=== PATIENT | male | born 1965 | race Caucasian/White ===

== ENCOUNTER 2020-09-30 07:32 | Outpatient (CLI) | payer BC, SELFPAY ==
[2020-09-30 09:01] VITALS: BP 119/80; PULSE 80; RESP 16; TEMP 37.1; O2SAT 91
--- NOTE | 2020-09-30 09:07 | ED_ITS ---
HPI - General Adult History of Present Illness: HPI narrative: This patient presents to the emerg ency department for monoclonal antibody infusion related to COVID-19 infection. Patient denies any increased shortness of breath. Or any significant fever. Patient and I discussed all risk and concerns. Patient states understanding he request request to proceed. Patient is medically medically stable and will proceed with monoclonal infusion. Associated symptoms: Deny chest pain, dyspnea, headache(s), nausea, rash, palpitations or vomiting Review of Systems General: Reports: 10 or more systems reviewed and unremarkable except in HPI and below Const: Denies: fever(s), chills, body aches or fatigue Eyes: Denies: change in vision or blurry vision ENMT: Denies: throat pain, hoarseness or mouth pain Card: Denies: chest pain, palpitations, irregular heart rhythm, edema, swelling of feet/ankles or lightheadedness Resp: Reports: non-productive cough; Denies: dyspnea, productive cough, wheezing or pain on inspiration GI: Denies: abdominal pain, nausea or vomiting : Denies: flank pain, dysuria, urinary frequency, urinary urgency or urinary hesitancy Musc: Denies: neck pain, back pain, extremity pain, extremity swelling, joint pain, joint swelling, joint redness, joint warmth or limited range of motion Skin/Breast: Denies: rash, pruritus, erythema or skin tenderness Neuro: Denies: headache(s), numbness in extremities or weakness in extremities Psych: Denies: anxiety or depression Physical Exam Const: COMMON NORMALS: no acute distress, average body habitus, patient oriented x3, no limitations, healthy appearing, alert and well nourished HENMT: COMMON NORMALS: normocephalic, atraumatic, hearing grossly normal bilaterally, external ears normal, EAC's normal, TM's normal bilaterally, Normal external nose present, Normal nasal mucous membranes and turbinates present, moist oral mucous membranes, oropharynx normal, dentition normal and gingiva normal HEAD & SCALP: normocephalic and atraumatic NOSE: Normal external nose present and Normal nasal mucous membranes and turbinates present EXTERNAL EAR: Yes external ears normal EXTERNAL AUDITORY CANAL: EAC's normal TYMPANIC MEMBRANE: TM's normal bilaterally Neck/C-Spine: COMMON NORMALS: full ROM, no lymphadenopathy, supple, no meningeal signs, no JVD, Thyroid normal and No carotid bruits THYROID: Thyroid normal Chest: COMMONS NORMALS: normal inspection of the chest, normal palpation of entire chest wall, normal inspection of the breasts and normal palpation of the breasts Breast/axilla inspection: Yes normal inspection of the breasts BREAST/AXILLA PALPATION: Yes normal palpation of the breasts Resp: COMMON NORMALS: normal respiratory effort, No retractions, No use of accessory muscles, clear to auscultation bilaterally and percussion normal AUSCULTATION: clear to auscultation bilaterally PERCUSSION: percussion normal Cardio: COMMON NORMALS: no JVD, regular rate, regular rhythm, S1 normal heart sound present, S2 normal heart sound present, No gallops present (Cardio), No clicks present (Cardio), No murmurs present (Cardio), No rub (Cardio) and Peripheral pulses 2+ throughout RATE: regular rate RHYTHM: regular rhythm HEART SOUNDS: S1 normal heart sound present and S2 normal heart sound present PERIPHERAL PULSES: Peripheral pulses 2+ throughout GI: COMMON NORMALS: Normal to inspection, nondistended, normoactive bowel sounds present, Soft to palpation, non-tender, No hepatosplenomegaly present, no masses and no bruits PALPATION: Yes Soft to palpation and Yes No hepatosple nomegaly present : COMMON NORMALS: Yes no CVA tenderness BLADDER/KIDNEY EXAM: Yes no CVA tenderness Back/Pelvis: COMMON NORMALS: no CVA tenderness, thoracic and lumbar spine normal to inspection, no thoracic nor lumbar tenderness, thoraco-lumbar ROM normal and straight leg raise negative bilaterally Extremity: COMMON NORMALS: normal to inspection, full ROM, capillary refill normal, no joint enlargement, no clubbing, cyanosis or edema, no calf tenderness and no pedal edema Neuro: COMMON NORMALS: patient oriented x3 SENSORIUM/ORIENTATION: Yes alert MENINGEAL SIGNS: Yes no meningeal signs Discharge Plan Discharge Patient Disposition: Home Discharge Orders: Discharge Order (Routine); Ordered 09/30/20 Ordered By: Donny Holden Referrals: Dustin Castellano MD [Primary Care Provider] - Coding Level of Care Code ED Medical Collector for Claudette Quezada
[2020-09-30 10:48] VITALS: BP 121/82; PULSE 91; TEMP 36.9; O2SAT 93
[2020-09-30 12:00] VITALS: BP 115/79; PULSE 88; TEMP 37; O2SAT 92
--- NOTE | 2020-10-08 15:35 | DCPLANNER ---
internet technology manager had message that patient received the monoclonal antibody infusion. internet technology manager called [phone], unable to speak with patient at this time, a voicemail was left for patient to return ed case manager phone call.
== END 2020-09-30 07:33 | disposition home or self-care (01) ==
PROVIDERS: PCP Family Medicine; Visit Provider Family Medicine
DX: U07.1 COVID-19 (principal)

== ENCOUNTER → 2023-03-08 07:54 | Outpatient (BNVA) | payer BC, SELFPAY | PROVIDERS: PCP Family Medicine; Visit Provider Family Medicine | DX: R73.03 Prediabetes (principal); Z13.220 Encounter for screening for lipoid disorders; Z51.81 Encounter for therapeutic drug level monitoring; Z79.899 Other long term (current) drug therapy | CPT/HCPCS: 80053; 80061; 83036; 85025 ==

== ENCOUNTER 2023-04-01 08:01 | Day surgery (SDC) | payer BC, SELFPAY ==
[2023-04-01 08:26] VITALS: BP 123/84; PULSE 108; RESP 18; TEMP 36.6; O2SAT 96; BMI 36.5
[2023-04-01] MEDS: sodium chloride 0.9% 1,000 ML 30 ML IV (08:37)
--- NOTE | 2023-04-01 09:50 | ANES.PREANE2 ---
Pre-Anesthetic Assessment Height/Weight: Height 1.73 m Weight 108.862 kg Temp Pulse Resp BP Pulse Ox O2 Del Method 97.8 F 108 H 18 123/84 96 Room Air 04/01/23 08:26 04/01/23 08:26 04/01/23 08:26 04/01/23 08:26 04/01/23 08:26 04/01/23 08:26 Preop Diagnosis: screening colonoscopy Operation Date: 04/01/23 09:00 Proposed Procedures p 20269 colonoscopy G0121 screen colon a risk Z12.11(Not Applicable) - Primo Jose DO Familial anesthetic complications: NONE Was Beta Socorro taken within 24 hours: N/A Was Clonidine taken within 24 hours: N/A Last intake: Intake Last Liquid Date 03/31/23 Last Liquid Time 20:00 Last Solid Date 03/30/23 Last Solid Time 18:00 Social Tobacco and No alcohol 1 pack(s) per day 10 pack years quit 20 years Exam alert, oriented x 3, clear to auscultation bilaterally and regular rate & rhythm states nausea and vomiting after shoulder surgery Airway Submandibular: within normal limits Cervical ROM: within normal limits Mallampati: Class I Dentition: full History/ROS No significant history except as noted Pulmonary None reported CV/HEM None reported None reported Hepatic None reported GI None reported Metabolic None reported Musc/skel Lower Back Pain Neuropsych None reported Anesthetic Plan ASA status: 2 Anesthesia: MAC Risk of > 500 ml blood loss (7ml/kg in children): No Medications/Allergies Home Medications Medication Instructions Recorded Confirmed Last Taken Type allopurinol 100 mg tablet 100 mg PO DAILY #90 tabs 01/19/23 04/01/23 03/30/23 Rx triamcinolone acetonide 0.5 % 1 applic topical DAILY PRN Rash 03/30/23 04/01/23 03/30/23 History topical cream Allergies Allergy/AdvReac Type Severity Reaction Status Date / Time penicillin V Allergy Unknown Unknown Verified 04/01/23 08:25 Current Medications Generic Name Dose Route Start Last Admin Trade Name Freq PRN Reason Stop Dose Admin Sodium Chloride 1,000 mls @ 30 mls/hr 04/01/23 08:15 04/01/23 08:37 Sodium Chloride 0.9% IV 04/02/23 08:14 30 mls/hr .Q24H LING Administration PFSH Anesthesia Family History Mother Cervical cancer Father Heart attack Data Anesthesia Cardiac Studies: No Data to Display
--- NOTE | 2023-04-01 10:05 | W.PM.OPSUD ---
Surgery/Procedure H&P Update DATE OF PROCEDURE: April 01, 2023 DATE H&P PERFORMED: 03/08/23 H&P UPDATE INFORMATION: I have reviewed H&P completed within last 30 days, I have examined patient prior to procedure and No changes to prior documentation PREOP DIAGNOSIS: screening colonoscopy PLANNED PROCEDURE: Operation Date: 04/01/23 09:00 Proposed Procedures p 76393 colonoscopy G0121 screen colon a risk Z12.11(Not Applicable) - Primo Jose, DO
[2023-04-01 10:37] VITALS: BP 108/88; PULSE 87; RESP 16; TEMP 36.1; O2SAT 94
[2023-04-01 10:55] VITALS: BP 134/92; PULSE 84; RESP 16; O2SAT 96
--- NOTE | 2023-04-01 13:10 | ANE.PACU2 ---
Inpatient post-anesthesia follow up: Airway intact: Yes Vital signs: Temperature 97 F Pulse Rate 84 Respiratory Rate 16 Blood Pressure 134/92 Pulse Oximetry 96 Oxygen Delivery Me thod Room Air Oxygen Flow Rate Fraction of Inspir ed Oxygen Hydration adequate: Yes Nausea and vomiting: No Pain level: 2 Mental status: Baseline
== END 2023-04-01 11:16 | disposition home or self-care (01) ==
PROVIDERS: PCP Family Medicine; Visit Provider Surgery
PROC: 0DJD8ZZ Inspection of Lower Intestinal Tract, Via Natural or Artificial Opening Endoscopic (ICD-10-PCS; CPT 45378; principal; 2023-04-01 09:00)
DX: Z12.11 Encounter for screening for malignant neoplasm of colon (principal); K64.8 Other hemorrhoids; D12.0 Benign neoplasm of cecum; D12.4 Benign neoplasm of descending colon; D12.5 Benign neoplasm of sigmoid colon; Z87.891 Personal history of nicotine dependence; Z79.82 Long term (current) use of aspirin
CPT/HCPCS: 45385; 88305; J2704; J7030

== ENCOUNTER 2023-11-23 09:29 | Outpatient (CLI) | payer OTHER, SELFPAY ==
[2023-11-23 09:40] VITALS: BMI 38.0
--- NOTE | 2023-11-23 09:43 | ECG_ITS ---
[facility] Test Date: 2023-11-23 Pat Name: Kenton Glasgow Department: Room: Gender: Male Can Sorter: : 1965 Requested By: Dustin Peralta Order Number: [id number] Casillas MD: Arun Thakur M.D. Interpretive Statements NAME OF STUDY: EXERCISE SESTAMIBI STRESS TEST INDICATION: [Chest Pain; Shoulder pain with exertion] EXERCISE DATA: The patient was exercised by Pierre protocol. Baseline heart rate was 88 beats per minute. Baseline blood pressure was 151/103 millimeters of mercury. Maximal predicted heart rate was 162 beats per minute. Maximum heart rate achieved was 159 which was 98% of the maximum predicted heart rate. Maximum blood pressure jal469/84 millimeters of mercury. Total exercise time was 6 minutes and 16 seconds. Maximum METs achieved was 10.2. The reason for ending the test was completion of protocol. The patient complained of shoulder discomfort and chest pain during the stress test, which then resolved at the end of the test. ELECTROCARDIOGRAM: BASELINE: Showed sinus rhythm, normal axis, no significant ST-T changes at the baseline noted. [] EXERCISE: At the peak exercise level, [] 1.5-2mm ST depressions seen in leads I, II, V5-V6. RECOVERY: During the recovery period, heart rate dropped appropriately. No significant ST-T changes in the recovery suggestive of ischemia noted. [] CONCLUSION: 1. Exercise capacity is good. 2. Heart rate response was appropriate 3. Blood pressure response was appropriate 4. Symptoms suggestive of ischemia (shoulder pain and shortness of breath with exertion). 5. Electrocardiogram portion of the stress test was suggestive of ischemia. 6. Nuclear scan will be documented separately. Electronically Signed On 11-30-2023 16:28:15 CDT by Arun Thakur M.D. [id number]
--- NOTE | 2023-11-23 09:44 | NMCV_ITS ---
NM nahun perf SPECT r/s* [id number] Kenton Glasgow Age: 58 Gender: M : 1965 Exam Date: 11/23/2023 09:44 Ordering Phys: Dustin Castellano MD Technologist: LEN Ramsey Exam Location: [facility] Indications: CP STRESS TEST Please see separate stress test report in [facility] for full findings IMAGE PROTOCOL Rest/Stress 1 Exercise Day Radiopharmaceutical Dose (mCi) Administration Site Administered by Rest: Tc-99m 10.55 IV LEN Ramsey Sestamibi Stress:Tc-99m 32.9 IV LEN Mcintyre Sestamibi Rest: 23-Nov-2023 60 Discovery 630 Stress: 23-Nov-2023 15 Discovery 630 SPECT RESULTS Technical Quality: Excellent Raw Data Analysis: Normal Image Corrections: No attenuation or motion correction applied Summed Stress Score: 28 Summed Rest Score: 0 Summed Difference Score: 28 PERFUSION FINDINGS Large of reversible perfusion defect seen in apical, apical anterior, inferior and inferolateral johnston. This is consistent with large area of ischemia in distribution of all 3 coronary arteries. FUNCTIONAL RESULTS (calculated via Gated SPECT) Stress Image LV EF (%): 47 Stress EDV (mL):135 TID: 1.52 Stress ESV (mL):72 FUNCTIONAL FINDINGS: LV systolic function is mildly reduced with EF of 47%. TID ratio is elevated with a value of 1.52. IMPRESSIONS 1. Abnormal myocardial perfusion imaging with large area of ischemia seen in the distribution of all 3 coronary arteries. 2. LV systolic function is mildly reduced with EF of 47%. 3. TID ratio is elevated with a value of 1.52. This likely represents multivessel CAD. Arun Thakur MD (Electronically Signed) Final Date: 23 November 2023 12:41 S
[2023-11-23 12:17] VITALS: BP 156/84; PULSE 65
== END 2023-11-23 09:30 | disposition home or self-care (01) ==
PROVIDERS: PCP Family Medicine; Visit Provider Family Medicine
DX: R07.9 Chest pain, unspecified (principal); R94.39 Abnormal result of other cardiovascular function study; R06.02 Shortness of breath
CPT/HCPCS: 36415; 78452; 93017; A9500

== ENCOUNTER 2023-12-01 14:31 | Outpatient (CLI) | payer OTHER, SELFPAY ==
[2023-12-01 14:45] LABS: Basophils # 0.1 10^3/uL (0.0-0.1); Basophils % 0.9 %; Eosinophils # 0.4 10^3/uL (0.0-0.8); Eosinophils % 4.6 %; Hematocrit 48.5 % (37-53); Lymphocytes # 3.9 10^3/uL (0.8-4.8); Lymphocytes % 43.1 %; Mean Corpuscular Hemoglobin 30.3 pg (27-33); Mean Platelet Volume 10.2 fL (7.4-10.4); Monocytes # 0.7 10^3/uL (0.2-0.9); Monocytes % 7.4 %; Neutrophils # 3.94 10^3/uL (1.8-7.7); Neutrophils % 43.7 %; Nucleated Red Blood Cells % 0 %; Platelet Count 330 10^3/cmm (157-399); Red Blood Count 5.45 10^6/uL (3.85-5.65); Red Cell Distribution Width 12.1 % (12.1-15.1); White Blood Count 9.04 10^3/uL (3.29-11.43)
[2023-12-01 15:06] LABS: Anion Gap 14.9 (5-19); Blood Urea Nitrogen 17 mg/dL (6-20); Calcium 9.7 mg/dL (8.5-10.5); Carbon Dioxide 27 mmol/L (22-29); Chloride 102 mmol/L (98-107); Glomerular Filtration Rate 86.7 mL/min (90-130); Glucose 87 mg/dL (65-115); Osmolality Calculated 291 mOsm/kg (285-295); Potassium 3.9 mmol/L (3.5-5.1); Sodium 140 mmol/L (136-145)
[2023-12-01 15:07] LABS: INR 0.95 (0.83-1.21)
== END 2023-12-01 14:32 | disposition home or self-care (01) ==
LOC: LAB 14:32
PROVIDERS: PCP Family Medicine; Visit Provider Internal Medicine
DX: R94.39 Abnormal result of other cardiovascular function study (principal); R58 Hemorrhage, not elsewhere classified; R07.9 Chest pain, unspecified
CPT/HCPCS: 36415; 80048; 85025; 85610

== ENCOUNTER 2023-12-05 05:53 | Outpatient (CLI) | payer OTHER, SELFPAY ==
[2023-12-05] VITALS (16 sets, daily range): BP systolic 115–182; BP diastolic 79–108; PULSE 77–88; RESP 12–23; TEMP 36.9; O2SAT 92–96; BMI 39.4
--- NOTE | 2023-12-05 06:00 | XACV_ITS ---
Exam Room: 2 Ht: 173 cm Wt: 117 kg BSA: 2.43 m2 Gender: Male : 1965 Any Known Allergies: Penicillins Exam Priority: Routine Procedure(s): Procedure Description: Diagnostic procedure Procedure Description: Left Heart Catheterization Procedure Description: Left ventriculography Procedure Description: Coronary Angiography Diagnostic Cath Status: Elective Diagnostic Findings * INDICATION: Worsening angina/abnormal stress test. * Left Main has no significant disease. * Circumflex has 50-60% stenosis in the proximal vessel. 90% stenosis in mid to distal segment. Gives rise to OM 1 which has 50% ostial disease. * Right Coronary Artery has severe 90% proximal vessel stenosis. Distal RCA has a severe 80-90% stenosis. * Ostial to proximal Left Anterior Descending: severe 80-90% stenosis. Mid vessel has a 90% stenosis. Another lesion in mid to distal LAD that is 80% stenosed. Gives rise to medium sized diagonal artery that has a 70-80% stenosis. * Coronary angiography shows right dominance. Conclusions 1. Severe multivessel coronary artery disease. 2. Normal left ventricular systolic function. Ejection fraction of 50%. Recommendations * We will refer patient for CABG evaluation by CT surgery. * Continue aspirin. Will start high intensity statin therapy. * Outpatient cardiology follow up in 1-2 weeks. Interventional RX Recommendation: CABG Diagnostic RX Recommendation: CABG Anticoagulation: Heparin Ventriculography Ejection Fraction: 50.0 % Pressures Phase:Rest AO : 110 / 74 ( 88 ) @ 8:36:00 AM 91 / 78 ( 85 ) @ 8:37:00 AM 96 / 79 ( 88 ) @ 8:41:00 AM 131 / 88 ( 109 ) @ 8:45:00 AM 139 / 92 ( 114 ) @ 8:45:00 AM LV : 145 / -5 / 19 @ 8:44:00 AM 126 / 9 / 22 @ 8:45:00 AM 129 / 8 / 23 @ 8:45:00 AM Valves Phase:DefaultPhase AV : 0.0 @ 7:53:02 AM Clinical Evaluation EBL: 5mL-10mL Procedural Details Pre-Procedure Time Out. Identified patient by full name and date of as verbalized by the patient/guarantor. Does the consent match the physician's order: Yes. Accurate & Complete Informed Consent: Yes. Inpatient/Outpatient History & Physical on Chart: Yes. If H&P is completed, is and addenduem needed: No; If yes, is the addendum complete: N/A. Visualize and Verify Site with Patient/Guarantor: N/A. Relevant Radiology Images available: Yes. Pre-op teaching completed and patient verbalized understanding. The risks, benefits, and alternatives of sedation and/or procedure were discussed by physician. The patient agrees to continue. Procedure started. [facility] Clinical Fraility Score: 3: Managing Well. Commercial Food Instructor Indications: Worsening Angina/Abnormal stress test. Chest Pain Symptom Assessment: Typical Angina Symptoms. Cardiovascular Instability: No. Correct patient, site and procedure confirmed by cath team. PERRLA. Strong, equal hand net architect bilaterally. Lungs clear x 5 lobes. IV Site on Arrival: 20 gauge in the left hand. IV Fluids: 0.9% NaCl at KVO. 0 mL infused prior to laborer vegetable farm. Pre Procedural Pulses: bilateral radial was 2+. Pre Procedural Pulses: right dorsalis pedis was 3+. Pre Procedural Pulses: left dorsalis pedis was 2+. Pre Procedural Pulses: bilateral posterior tibial was Doppled. Oxygen started at 2liters/min via nasal canula. right groin was prepped with chloroprep then draped in the usual sterile fashion. right radial was prepped with chloroprep then draped in the usual sterile fashion. Physician notified. Baseline sample Acquired. HR: 79 BPM. Patient's family in CPRU. Dr. Thakur will update at the completion of the procedure. Equipment: 6F - Radial. Cardiac Cath Pack. ACIST Manifold Kit Model BT 2000. Heparinized Saline (2 units/mL), 1000 mL bag. Physician arrived. Current Diagnosis : Chest Pain. Physician arrived. Physician scrubbed in. Immediate Pre-Procedure Time Out. Correct Patient: Yes; Correct Procedure: Yes; Correct Site: Yes; Correct Patient Position: Yes; Correct Supplies: Yes; Dried Flammable Prep: Yes; Blood Products Available: N/A;. Lidocaine 1% infiltrated to the right radial. Arterial access obtained. A 5 spanish TIG catheter in over wire. Multiple views taken of left coronary artery. Catheter redirected to the RCA. Multiple views taken of right coronary artery. Catheter removed over the exchange wire. A 5 spanish Angled Pig catheter in over wire. EDP Sample taken: LV 145/-6,19; HR: 77 BPM; SpO2: 96%. LV gram performed in CINTRON @ 10 mL/second for a total of 30 mL. EDP Sample taken: LV 126/9,22; HR: 74 BPM; SpO2: 97%. Pullback taken: LV 129/8,23; AO 131/88(109); Mean: , Peak to Peak: 0mmHg, SEP: ; HR: 74 BPM; SpO2: 97%. Catheter removed over the exchange wire. Physician scrubbed out. Vital chart was stopped. A TR Band was successful obtaining hemostatsis at the Right Radial artery insertion site. Post Procedure: Pulses reassessed and unchanged. PERRLA. Strong, equal hand net architect bilaterally. No VTE prophylaxis required. Medication's Wasted: Lidocaine 1% = 18 mL. Medication's Wasted: Nitro = 49.8 mcg. Medication's Wasted: Heparin = 1000 units. Total IV fluids: 50 mL. Post-op diagnosis: CAD. Complications: None. Estimated blood loss: 5mL-10mL. Responsiveness - Normal response to verbal stimuli; alert and oriented, PERRLA. Airway - Unaffected, no intervention required; spontaneous ventilation. Circulation: W/N/L, pulses unchanged. Nausea/Vomiting: No. Procedure completed. Patient transferred by wheelchair to CPRU. Access Site Site: Right Radial artery Sheath Size: 6 Fr Hemostasis Method: TR Band Hemostasis Success: Successful Procedure Medications Start: 7:20 AM Stop: 7:20 AM Medication: Fentanyl Amount: 25 mcg Route: I.V. Start: 7:28 AM Stop: 7:28 AM Medication: Versed 1 mg and Fentanyl 25 mcg Amount: 1 Route: I.V. Start: 7:33 AM Stop: 7:33 AM Medication: Nitrogylcerin Amount: 200 mcg Route: I.A. Start: 7:33 AM Stop: 7:33 AM Medication: Versed 1 mg and Fentanyl 25 mcg Amount: 1 Route: I.V. Start: 7:35 AM Stop: 7:35 AM Medication: Heparin Amount: 5000 units Route: I.V. Start: 7:43 AM Stop: 7:43 AM Medication: Fentanyl Amount: 25 mcg Route: I.V. I, the attending physician, have reviewed and verified all procedure medications. Yes, all medications given per verbal order History/Risk Factors Hypertension: No Dyslipidemia: Yes Peripheral Arterial Disease (PAD): No Myocardial Infarction (AK): No Obesity: Yes Renal Disease: No Tobacco Use: Former Prior Interventions PCI: No CABG: No Valve Surgery: No Report Signatures Finalized by Arun Thakur MD on 12/08/2023 08:52 AM
[2023-12-05] MEDS: diphenhydrAMINE 50 mg Capsule PO (06:10)
--- NOTE | 2023-12-05 07:07 | W.PM.OPSUD ---
Surgery/Procedure H&P Update DATE OF PROCEDURE: December 05, 2023 DATE H&P PERFORMED: 11/25/23 H&P UPDATE INFORMATION: I have reviewed H&P completed within last 30 days, I have examined patient prior to procedure and No changes to prior documentation PREOP DIAGNOSIS: Worsening angina/abnormal stress test PRIMARY INDICATION FOR PROCEDURE: Worsening angina/abnormal stress test PLANNED PROCEDURE: Operation Date: 12/05/23 07:00 Proposed Procedures p Cardiac Catheterization - [facility] w/wo LV & Coros(Left) - Arun Thakur M.D Possible percutaneous coronary intervention PATIENT REASSESSED PRIOR TO SEDATION, WITH NO CHANGE NOTED: Yes PHYSICAL EXAM: alert, oriented x 3, clear to auscultation bilaterally and regular rate & rhythm OTHER PERTINENT EXAM FINDINGS: Moderate sedation AIRWAY EVAL/ANESTHESIA PLAN: normal airway, ASA III, Local Anesthesia, Risks, benefits & alternatives of sedation and/or procedure discussed and Patient agrees to continue as planned ADDITIONAL INFORMATION: Moderate sedation
--- NOTE | 2023-12-05 08:00 | PC.NURSE ---
Patient arrived to CPRU 3 post cath procedure. Pt awake and responds appropriately, breathing even and non-labored. Denies pain. TR band to right wrist, site asymptomatic. No signs of bleeding or hematoma. Radial pulse palpable. Pt placed on bedside case monitor. Dr. Thakur at bedside updating family. Pt educated on activity restrictions of right arm, verbalized understanding.
--- NOTE | 2023-12-05 10:30 | PC.NURSE ---
TR band removal note Started to remove air of TR band at 0900. 1-3ml air released every 5-15 minutes until TR band deflated. TR band deflated at 1015. Site asymptomatic. No signs of bleeding or hematoma. Radial pulse palpable. Clean bandaid applied to site.
== END 2023-12-05 11:34 | disposition home or self-care (01) ==
PROVIDERS: PCP Family Medicine; Visit Provider Internal Medicine
DX: I25.10 Atherosclerotic heart disease of native coronary artery without angina pectoris (principal); E78.5 Hyperlipidemia, unspecified; E66.9 Obesity, unspecified; Z68.39 Body mass index [BMI] 39.0-39.9, adult; Z87.891 Personal history of nicotine dependence; Z82.49 Family history of ischemic heart disease and other diseases of the circulatory system
CPT/HCPCS: 36415; 93458; 96374; 99152; 99153; C1769; C1887; C1894; J1644; J2250; J3010; J3490; J7030; Q0163; Q9967

== ENCOUNTER → 2023-12-12 09:33 | Outpatient (BNVA) | payer OTHER, SELFPAY | PROVIDERS: PCP Family Medicine; Visit Provider Nurse Practitioner Family | DX: I25.10 Atherosclerotic heart disease of native coronary artery without angina pectoris (principal) | CPT/HCPCS: 36415; 80048 ==

== ENCOUNTER 2023-12-20 10:52 | Outpatient (CLI) | payer OTHER, SELFPAY | END 2023-12-20 10:53 | disposition home or self-care (01) | PROVIDERS: PCP Family Medicine; Visit Provider Surgery | DX: Z01.818 Encounter for other preprocedural examination (principal); I25.10 Atherosclerotic heart disease of native coronary artery without angina pectoris | CPT/HCPCS: 94010; 94726; 94729 ==

== ENCOUNTER → 2024-01-12 15:49 | Outpatient (BNVA) | payer OTHER, SELFPAY | PROVIDERS: PCP Family Medicine; Visit Provider Family Medicine | DX: I25.10 Atherosclerotic heart disease of native coronary artery without angina pectoris (principal) | CPT/HCPCS: 80048; 85025 ==

== ENCOUNTER → 2024-07-12 07:20 | Outpatient (BNVA) | payer OTHER, SELFPAY | PROVIDERS: PCP Family Medicine; Visit Provider Family Medicine | DX: R03.0 Elevated blood-pressure reading, without diagnosis of hypertension (principal); Z00.00 Encounter for general adult medical examination without abnormal findings; R73.03 Prediabetes; Z13.6 Encounter for screening for cardiovascular disorders; E55.9 Vitamin D deficiency, unspecified; Z51.81 Encounter for therapeutic drug level monitoring | CPT/HCPCS: 80053; 80061; 82306; 83036; 84550; 85025 ==

== ENCOUNTER → 2025-01-22 07:43 | Outpatient (BNVA) | payer OTHER, SELFPAY | PROVIDERS: PCP Family Medicine; Visit Provider Family Medicine | DX: Z51.81 Encounter for therapeutic drug level monitoring (principal); Z13.6 Encounter for screening for cardiovascular disorders; E55.9 Vitamin D deficiency, unspecified; R73.03 Prediabetes; R35.0 Frequency of micturition; R03.0 Elevated blood-pressure reading, without diagnosis of hypertension | CPT/HCPCS: 80053; 80061; 82306; 83036; 84153; 84550; 85025 ==